=== PATIENT | female | born 1950 | race Caucasian/White ===

== ENCOUNTER 2017-10-29 18:27 | Emergency (ER) | payer MEDICARE, OTHER ==
[~2017-10-29] VITALS: Ht 162.6 cm; Wt 79.3 kg
[2017-10-29 18:34] VITALS: BP 157/88
[2017-10-29] MEDS ORDERED: DIPHENHYDRAMINE 25 MG CAPSULE ONE (19:20)
[2017-10-29] MEDS ORDERED: DIPHENHYDRAMINE 25 MG CAPSULE PO ONE (19:30)
== END 2017-10-29 20:01 | disposition home or self-care (01) ==
LOC: ED 19:15
DX: S60.562A Insect bite (nonvenomous) of left hand, initial encounter (principal); E78.00 Pure hypercholesterolemia, unspecified; I10 Essential (primary) hypertension; W57.XXXA Bitten or stung by nonvenomous insect and other nonvenomous arthropods, initial encounter; Y93.89 Activity, other specified; Y92.89 Other specified places as the place of occurrence of the external cause; Y99.8 Other external cause status
CPT/HCPCS: 99282; Q0163